=== PATIENT | male | born 1960 | race Caucasian/White ===

== ENCOUNTER 2016-12-21 22:48 | Emergency (ER) | payer OTHER ==
--- NOTE | 2016-12-21 22:54 | PDOC ---
History of Present Illness - General Chief Complaint: Pain, Acute Stated Complaint: LEFT EAR INFECTION Time Seen by Provider: 12/21/16 22:51 History Source: Patient Exam Limitations: No Limitations - History of Present Illness Initial Comments: 12/21/16 23:07 This is a 56-year-old male who comes in complaining of left ear pain times this afternoon. Patient said it was aching this afternoon and became worse this evening. Patient has history of otitis media in the past with similar symptoms. Patient denies any fevers or chills. Patient denies any discharge from his ear. Patient says he is otherwise healthy and has no ALLERGIES to medications. Patient denies any sore throat or rashes. PAST MEDICAL HISTORY: no significant history PAST SURGICAL HISTORY: no significant history FAMILY HISTORY: no pertinant history SOCIAL HISTORY: Pt lives with family and is employed. MEDICATIONS: reviewed ALLERGIES: As per nursing notes Review of Systems General: No fevers or chills, no weakness, no weight loss HEENT: No change in vision. No sore throat,. No ear pain CardioVascular: No chest pain or shortness of breath Respiratory:No cough, or wheezing. Gastrointestinal: no nausea, vomitting, diarrhea or constipation, No rectal bleeding Genitourinary: No dysuria, hematuria, or frequency Musculoskeletal: No joint or muscle pain or swelling Neurologic: No headache, vertigo, dizziness or loss of consciousness Psychiatric: nor depression Skin: No rashes or easy bruising Endocrine: no increased thirst or abnormal weight change Allergic: no skin or latex allergy All other systems reviewed and normal GENERAL: The patient is awake, alert, and fully oriented, in no acute distress. HEAD: Normal with no signs of trauma. EARS: There is some erythema and swelling of the external canal with a small amount of debris in the canal in addition to that there is some erythema of the tympanic membrane even though it is difficult to visualize. EYES: Pupils equal, round and reactive to light, extraocular movements intact, sclera anicteric, conjunctiva clear. EXTREMITIES: Normal range of motion, no edema. NEUROLOGICAL: Normal speech, normal gait. PSYCH: Normal mood, normal affect. SKIN: Warm, Dry, normal turgor, no rashes or lesions noted. Assessment and plan: This is a 56-year-old male who comes in complaining of left ear pain. Patient has both an otitis externa as well as otitis media. Patient given Toradol for the pain, Corticosporin otic for the otitis externa and azithromycin for the otitis media. Patient discharged home will follow-up with his doctor as needed Past History - Past Medical History Allergies/Adverse Reactions: Allergies Allergy/AdvReac Type Severity Reaction Status Date / Time No Known Allergies Allergy Verified 12/21/16 22:50 Home Medications: Ambulatory Orders Sodium Oxybate [Xyrem] 3,000 mg PO UTDICT 05/01/16 Azithromycin [Zithromax 250mg Tablets -] 250 mg PO DAILY #4 tab 12/21/16 - Psycho/Social/Smoking Cessation Hx Anxiety: No Suicidal Ideation: No Smoking History: Never smoked Hx Alcohol Use: No Drug/Substance Use Hx: No Substance Use Type: None *DC/Admit/Observation/Transfer Diagnosis at time of Disposition: Otitis externa Qualifiers: Otitis externa type: unspecified type Chronicity: unspecified Laterality: left Qualified Code(s): H60.92 - Unspecified otitis externa, left ear Otitis media Qualifiers: Otitis media type: unspecified Chronicity: unspecified Laterality: left Qualified Code(s): H66.92 - Otitis media, unspecified, left ear - Discharge Dispostion Disposition: HOME Condition at time of disposition: Stable Admit: No - Prescriptions Prescriptions: Azithromycin [Zithromax 250mg Tablets -] 250 mg PO DAILY #4 tab - Patient Instructions Additional Instructions: For the pain you can take ibuprofen or Tylenol as directed by the bottle. For the infection take azithromycin 1 tablet a day for the next 4 days in addition to that for the infection in the ear canal put 4 drops in the external canal 4 times a day for the next 7 days. Return to the emergency department immediately with ANY new, persistent or worsening symptoms. Continue any medications as previously prescribed by your physician. You should follow up with your primary doctor as soon as possible regarding today's emergency department visit. . Please make sure your doctor reviews the results of your emergency evaluation. Thank you for coming to the Emergency Department today for your care. It was a pleasure to see you today. Please note that your evaluation is INCOMPLETE until you follow-up with your doctor.
[2016-12-21 22:57] VITALS: BP 131/70; PULSE 93; TEMP 98.3; BMI 21.9
[2016-12-21] MEDS ORDERED: AZITHROMYCIN 250 MG TABLET (FP) PO ONE (23:01)
[2016-12-21] MEDS ORDERED: KETOROLAC TROMETHAMINE 60 MG/2 ML VIAL IM ONE (23:02)
[2016-12-21] MEDS ORDERED: NEOMYCIN/POLYMYXN/HC OTIC SOLUTION 10 ML BOTTLE AS STA (23:02)
[2016-12-21] MEDS ORDERED: KETOROLAC TROMETHAMINE 60 MG/2 ML VIAL ONE (23:03)
[2016-12-21] MEDS ORDERED: NEOMYCIN/POLYMYXN/HC OTIC SOLUTION 10 ML BOTTLE ONE (23:03)
[2016-12-21] MEDS ORDERED: AZITHROMYCIN 250 MG TABLET (FP) ONE (23:03)
== END 2016-12-21 23:13 | disposition home or self-care (01) ==
LOC: FER 22:48
PROC: 3E0233Z Introduction of Anti-inflammatory into Muscle, Percutaneous Approach (ICD-10-PCS; principal; 2016-12-21)
DX: H60.92 Unspecified otitis externa, left ear (principal); H66.92 Otitis media, unspecified, left ear
CPT/HCPCS: 99281-25